=== PATIENT | male | born 1940 | race Caucasian/White ===

== ENCOUNTER → 2017-12-01 | Outpatient (CLI) | payer MEDICARE ==
[~2017-12-01] MED LIST: CIPRO500 MG; CIPRO500 MG PO; LISINOPRIL2.5 MG; METFORMIN HCL500 MG; ZOCOR20 MG; glipizide
--- NOTE | 2017-12-11 17:15 | ONC ---
[address] [address] RADIATION ONCOLOGY NOTE Name: REBEKAH ESQUIVEL Osvaldo Room: [facility]#: [id number] Admission: 12/01/17 Attend Phys: Reggie Mendoza MD Discharge: Date of : 36 Report #: [id number] THIS REPORT FOR: //name// CC: Reggie Malik DATE OF SERVICE: 12/01/2017 RADIATION ONCOLOGY FOLLOWUP NOTE [facility] phone is [phone]. REFERRING PHYSICIANS: 1. Dr. Harlan Sherwood, his veterinary poultry inspector. 2. Dr. Ameya Huang, his primary care physician. 3. Dr. Justin Malik. PRIMARY SITE AND HISTOPATHOLOGY: The patient received definitive radiation therapy for a T1c N0 M0, stage II A, adenocarcinoma of the prostate with a [place] score 4+3 equal 7. The PSA was 6.0. He completed his radiation treatments on 05/22/2015. INTERVAL NOTE: The patient felt he was emptying his bladder well. He has a little bit more nocturia because his antihypertensive medication was changed from lisinopril to Lasix. MEDICATIONS: Glipizide, metformin and simvastatin. SOCIAL HISTORY: Cigarettes, he smoked about a pack a day for about 30 years; he quit smoking in 1986. REVIEW OF SYSTEMS: GASTROINTESTINAL: He has about 1-2 bowel movements a day. He has a good appetite. GENITOURINARY: He is emptying his bladder well. He has nocturia about 3 times a night with him taking Lasix. PHYSICAL EXAMINATION: VITAL SIGNS: The patient weighed 222 pounds on 12/01/2017. He was 219.6 pounds on 05/26/2017. On 12/01/2017, blood pressure was 125/79, pulse 92, respirations 24 and oxygen saturation 97%. BACK: [place] [address] RADIATION ONCOLOGY NOTE Name: REBEKAH ESQUIVEL Room: [facility]#: [id number] Admission: 12/01/17 Attend Phys: Reggie Mendoza MD Discharge: Date of : 36 Report #: [id number] HEART: Had a regular rate and rhythm, without murmur. LUNGS: were clear to auscultation. RECTAL EXAMINATION: The prostate was not enlarged. He had no palpable nodules. He was guaiac negative, using [employer] Hemoccult cards from lot #[id number] that expires in 08/2019 from Hemoccult developer from lot [id number] that expires in 03/2020. LABORATORY DATA: From 11/18/2017, PSA was less than 0.13. ASSESSMENT AND PLAN: 1. History of prostate cancer- There is no evidence of prostate cancer at this time. The patient was given a requisition for a PSA in 10/2018. He was asked to schedule a follow up appointment to see me afterwards. 2. Diabetes- The patient takes glipizide and metformin, and that is managed by his referring physicians. 3. Hyperlipidemia- The patient takes simvastatin and that is managed by his referring physicians. 4. Hypertension- The patient takes Lasix and that is managed by his referring physicians. Thank you for allowing me to participate in the care of this patient. <ELECTRONICALLY SIGNED> By: Reggie Mendoza MD 12/11/17 1715 [id number] Mendoza MD /nt
== END ==
LOC: M.RTH 00:47
DX: Z08 Encounter for follow-up examination after completed treatment for malignant neoplasm (principal); E11.9 Type 2 diabetes mellitus without complications; I10 Essential (primary) hypertension; E78.5 Hyperlipidemia, unspecified; Z85.46 Personal history of malignant neoplasm of prostate

== ENCOUNTER → 2018-12-02 | Outpatient (CLI) | payer MEDICARE ==
--- NOTE | ~2018-12-02 | ONC ---
[address] [address] RADIATION ONCOLOGY NOTE Name: ALVINREBEKAH Osvaldo Room: [facility]#: [id number] Admission: 12/02/18 Attend Phys: Reggie Mendoza MD Discharge: Date of : 36 Report #: [id number] THIS REPORT FOR: //name// CC: Reggie Mendoza [facility] physician/PCP DATE OF SERVICE: 12/02/2018 RADIATION ONCOLOGY FOLLOWUP NOTE REFERRING PHYSICIANS: Dr. Ameya Huang, Dr. Harlan Sherwood from Cardiology, Dr. Justin Malik. [facility] phone is [phone]. PRIMARY SITE AND HISTOPATHOLOGY: The patient received definitive radiation therapy for T1c N0 M0, stage 2A adenocarcinoma of the prostate with a [place] score 4+3 equals 7, pretreatment PSA was 6.0. He completed his radiation treatments on 05/22/2015. INTERVAL NOTE: The patient felt he was emptying his bladder well. He indicated that he was treated for heart failure earlier this year and had a pacemaker/defibrillator placed. MEDICATIONS: Include metformin, glipizide, amiodarone, lisinopril, torsemide, tamsulosin spironolactone, aspirin, and atorvastatin. SOCIAL HISTORY: Cigarettes, smoked about a pack a day for about 30 years. He quit smoking in 1986. REVIEW OF SYSTEMS: GASTROINTESTINAL: He has about 1-2 bowel movements a day. He has a good appetite. GENITOURINARY: He is emptying his bladder well. He has nocturia about 0-3 times a night. PHYSICAL EXAMINATION: VITAL SIGNS: The patient weighed 195.2 pounds on 12/02/2018. He was 222 pounds on 12/01/2018 and on 12/02/2018, blood pressure is 116/62, pulse 67, respirations 20, oxygen saturation 97%. HEART: Had a regular rate and rhythm without murmur. LUNGS: Clear to auscultation. BACK: Not tender to palpation. RECTAL: Prostate was not enlarged. There were no palpable nodules. He was guaiac negative using [employer] Hemoccult cards from lot [id number] that expires in 08/2019 using [employer] Hemoccult developer from [place] [id number] [address] RADIATION ONCOLOGY NOTE Name: REBEKAH ESQUIVEL Room: [facility]#: [id number] Admission: 12/02/18 Attend Phys: Reggie Mendoza MD Discharge: Date of : 36 Report #: [id number] expires in 03/2020. LABORATORY DATA: PSA from 11/08/2018 was less than 0.13. ASSESSMENT AND PLAN: 1. History of prostate cancer. There is no evidence of prostate cancer. The patient was given a requisition to have a PSA drawn in approximately 1 year and he was asked to schedule a followup appointment to see me afterwards. 2. Diabetes. The patient takes metformin and glipizide for his diabetes that is managed by his referring physicians. 3. Hyperlipidemia. The patient takes atorvastatin and that is managed by his referring physicians. 4. Hypertension. The patient takes spironolactone and that is managed by his referring physicians. Thank you for allowing me to participate in the care of this patient. By: [id number] Mendoza MD /nt
== END ==
LOC: M.RTH 09:30
DX: Z08 Encounter for follow-up examination after completed treatment for malignant neoplasm (principal); I10 Essential (primary) hypertension; E11.9 Type 2 diabetes mellitus without complications; E78.5 Hyperlipidemia, unspecified; Z85.46 Personal history of malignant neoplasm of prostate